=== PATIENT | male | born 1995 | race African-American/Black ===

== ENCOUNTER 2018-07-19 11:34 | Emergency (ER) | payer OTHER ==
[~2018-07-19] VITALS: Ht 170.2 cm; Wt 70.8 kg
[2018-07-19] MEDS ORDERED: BENADRYL25 MG PO (11:45)
== END 2018-07-19 13:59 | disposition home or self-care (01) ==
LOC: ED 11:34
DX: S13.9XXA Sprain of joints and ligaments of unspecified parts of neck, initial encounter (principal); S43.401A Unspecified sprain of right shoulder joint, initial encounter; S30.0XXA Contusion of lower back and pelvis, initial encounter; W11.XXXA Fall on and from ladder, initial encounter
CPT/HCPCS: 72040; 72170; 73030; 99284